=== PATIENT | male | born 1955 | race Caucasian/White ===

== ENCOUNTER 2021-06-19 11:53 | Emergency (ER) | payer MEDICARE ==
[~2021-06-19] VITALS: Ht 172.7 cm; Wt 113.9 kg
[2021-06-19 12:11] VITALS: BP 138/63
--- NOTE | 2021-06-19 12:13 | NUR ---
TO ER BED 5, [id number] HOME C/O WEAKNESS. +COVID TEST 3 DAYS AGO. AAOX4, BREATHING EVEN AND NON LABORED, ATTACHED TO MONITOR
--- NOTE | 2021-06-19 12:15 | NUR ---
RADIOLOGY AT BEDSIDE FOR CHEST XRAY.
[2021-06-19] MEDS ORDERED: GUAI1TBM19 PO (12:29)
[2021-06-19] MEDS ORDERED: PRED50TA PO (12:29)
[2021-06-19] MEDS ORDERED: AZIT250T13 PO (12:29)
[2021-06-19] MEDS ORDERED: predniSONE 50 MG TABLET PO ONE (12:30)
[2021-06-19] MEDS ORDERED: AZITHROMYCIN 250 MG TABLET PO ONE (12:30)
[2021-06-19] MEDS ORDERED: predniSONE 20 MG TABLET ONE ×2 (12:48→12:49)
== END 2021-06-19 14:10 | disposition home or self-care (01) ==
LOC: ER 11:56
DX: U07.1 COVID-19 (principal); Z79.899 Other long term (current) drug therapy
CPT/HCPCS: 71045-TC